=== PATIENT | female | born 1980 | race Caucasian/White ===

== ENCOUNTER 2017-01-02 12:25 | Emergency (ER) | payer OTHER ==
[2017-01-02 12:33] VITALS: BP 104/69; PULSE 86; RESP 20; TEMP 97.9; O2SAT 100; BMI 20.4
[2017-01-02] MEDS ORDERED: Lidocaine 1% Inj (20ml) INFIL ONE (13:15)
[2017-01-02] MEDS ORDERED: Bacitracin 500 Units/gm Oint Foilpak UD TOP ONE (13:15)
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
== END 2017-01-02 14:19 | disposition home or self-care (01) ==
LOC: C.ER 12:25
DX: S61.210A Laceration without foreign body of right index finger without damage to nail, initial encounter (principal); W26.0XXA Contact with knife, initial encounter; Z23 Encounter for immunization